=== PATIENT | female | born 1995 | race Caucasian/White ===

== ENCOUNTER → 2024-10-25 15:07 | Outpatient (REF) | payer BC, SELFPAY | LOC: RAD 15:07 | PROVIDERS: ATTENDING PHYSICIAN Obstetrics & Gynecology Gynecologic Oncology; FAMILY PHYSICIAN Family Medicine | DX: R87.619 Unspecified abnormal cytological findings in specimens from cervix uteri (principal); R87.810 Cervical high risk human papillomavirus (HPV) DNA test positive | CPT/HCPCS: 76830; 76856 ==

== ENCOUNTER 2024-11-08 06:31 | Day surgery (SDC) | payer BC, SELFPAY ==
--- NOTE | 2024-11-07 17:35 | W.CON.GYNONC ---
Chief Complaint
-
abnormal pap
History of Present Illness
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 She moved from [place] to [facility] one year ago to be closer
to her significant other. Her adventure education teacher history is significant for abnormal pap, and cervical dysplasia treated with LEEP in 2019. she does
not know grade. she has followed with with paps which were normal recently.
Pap smear dated June 29, 2024 shows atypical squamous cells of undetermined significance, high risk HPV is positive.
Colposcopy was done, ECC shows fragments of dysplastic squamous epithelium favor high�grade with mucous and benign
endocervical epithelium. Cervical biopsy at 12:00 also shows high�grade squamous dysplasia.
PMH: IBS, GERD, Anxiety
PSH: LEEP
SHx:: was a smoker, quit 5 yrs ago, drinks alcohol socially, denies drugs use but uses marijuana occasionally (medically)
�works at [employer]
FHX: Maternal GM Breast ca, Skin ca
Allergies No�Known�Allergies
Medications
Xanax�0.5�mg�tablet 10/03/2024 0 prn
Past�Medical�History Anxiety GERD IBS
Surgical�History
LEEP Biopsy�
Medical History
Allergies
Allergies reflect when allergies were last updated in [employer].
No Known Allergies Allergy (Verified 11/04/24 14:56)
Physical Exam
Physical Exam
Physical Exam
Pelvic Examination:
External normal labia, urethra, anus.
Vagina: Normal mucosa.
Cervix: normal appearance, no discharge. no gross lesion seen
Uterus: normal size.
Adnexa: No pelvic mass.
RVE: no masses or nodularity
General: Well developed, well nourished patient. In no acute distress.
Ears, Nose, Throat, and Mouth: Normal oral mucosa and oropharynx.
Neck: No thyromegaly. No cervical lymphadenopathy.
Lungs: Clear to auscultation. Good air movement bilaterally.
Cardiac: Regular rate. Regular rhythm. No murmurs appreciated.
Right Breast: No masses or dimpling. No nipple discharge.
Left Breast: No masses or dimpling. No nipple discharge.
Abdomen: Abdomen is soft. Non�tender to palpation. Non�distended.
Extremities: No edema.
Hematologic/Lymphatic: No palpable lymphadenopathy.
Musculoskeletal: Normal range of motion. Strength and Tone are normal.
Skin:Non�jaundiced. No petechia. No purpura.
Neurologic: Speech is fluent. Normal gait and station. Cranial nerves intact.
Results
-
CBC/Diff Ambiguous Default -FinalOrdered by: Trav DELAROSA
WBC 5.1 x10E3/uL 3.4-10.8 [facility]
RBC 4.66 x10E6/uL 3.77-5.28 [facility]
Hgb 13.7 g/dL 11.1-15.9 [facility]
HCT 41.6 % 34.0-46.6 [facility]
MCV 89 fL 79-97 [facility]
MCH 29.4 pg 26.6-33.0 [facility]
MCHC 32.9 g/dL 31.5-35.7 [facility]
RDW Ratio 11.7 % 11.7-15.4 [facility]
Plat 249 x10E3/uL 150-450 [facility]
Neut% 50 % Not Estab. [facility]
Lymph% 40 % Not Estab. [facility]
MONO% 8 % Not Estab. [facility]
EOS% 1 % Not Estab. [facility]
BASO% 1 % Not Estab. [facility]
ANC 2.6 x10E3/uL 1.4-7.0 [facility]
Lymph# 2.0 x10E3/uL 0.7-3.1 [facility]
MONO# 0.4 x10E3/uL 0.1-0.9 [facility]
EOS# 0.0 x10E3/uL 0.0-0.4 [facility]
BASO# 0.0 x10E3/uL 0.0-0.2 [facility]
Immature Granulocytes 0 % Not Estab. [facility]
Immature Grans (Abs) 0.0 x10E3/uL 0.0-0.1 [facility]
A hand-written panel/profile was received from your office. In
accordance with the [facility] Ambiguous Test Code Policy dated April
2002, we have assigned CBC with Differential/Platelet, Test Code
#546108 to this request. If this is not the testing you wished to
receive on this specimen, please contact the [facility] Client Inquiry/
Technical Services Department to clarify the test order. We
appreciate your business.
Comp. Metabolic Panel (14) -FinalOrdered by: Trav DELAROSA
Glucose 88 mg/dL 70-99 [facility]
BUN 13 mg/dL 6-20 [facility]
Creat 0.73 mg/dL 0.57-1.00 [facility]
eGFR 113 mL/min/1.73 >59 [facility]
BUN Creat Ratio 18 9-23 [facility]
Sodium 138 mmol/L 134-144 [facility]
Potassium 4.2 mmol/L 3.5-5.2 [facility]
Chloride 101 mmol/L 96-106 [facility]
CO2 22 mmol/L 20-29 [facility]
Calcium 9.6 mg/dL 8.7-10.2 [facility]
Total Protein 7.4 g/dL 6.0-8.5 [facility]
Albumin 4.6 g/dL 3.9-4.9 [facility]
Globulin 2.8 g/dL 1.5-4.5 [facility]
Total Bili 0.2 mg/dL 0.0-1.2 [facility]
Alk Phos 75 IU/L 44-121 [facility]
AST 21 IU/L 0-40 [facility]
ALT 16 IU/L 0-32 [facility]
Urinalysis, Complete -FinalOrdered by: Trav DELAROSA
Sp [place] 1.024 1.005-1.030 [facility]
ph 6.0 5.0-7.5 [facility]
Color Yellow Yellow [facility]
Appearance Clear Clear [facility]
WBC Esterase Negative Negative [facility]
Protein [Presence] Negative Negative/Trace [facility]
Glucose (urine) Negative Negative [facility]
Ketone Negative Negative [facility]
Blood Negative Negative [facility]
Bilirubin (UA) Negative Negative [facility]
Urobil 0.2Low mg/dL 0.2-1.0 [facility]
Nitrite Negative Negative [facility]
Microscopic Examination MICRON [facility]
Microscopic follows if indicated.
Microscopic Examination See below: [facility]
Microscopic was indicated and was performed.
Microscopic Examination -FinalOrdered by: Trav DELAROSA
WBC (Urine) HPF 0-5 /hpf 0 - 5 [facility]
RBC (Urine) HPF None seen /hpf 0 - 2 [facility]
Epithelial Cells (non renal) >10Abnormal /hpf 0 - 10 [facility]
Casts None seen /lpf None seen [facility]
Bacteria Few None seen/Few [facility]
hCG,Beta Subunit, Qnt -FinalOrdered by: Trav DELAROSA
hCG,Beta Subunit,Qnt,Serum <1 mIU/mL [facility]
Female (Non-) 0 - 5
(Postmenopausal) 0 - 8
.
Female ()
Weeks of Gestation
3 6 - 71
4 10 - 750
5 007 - 7036
6 254 - 66835
7 1514 -234989
8 85100 -342264
9 17990 -796143
10 42397 -293846
12 98180 -794207
14 69019 - 58490
15 13971 - 66137
16 7980 - 89634
17 0338 - 95960
18 2158 - 79759
Ericka ECLIA methodology
TSH reflex to T4F -FinalOrdered by: Trav DELAROSA
TSH 1.600 uIU/mL 0.450-4.500 [facility]
Urine Culture, Routine -FinalOrdered by: Trav Manzo Source:
Urine Culture, Routine Final report [facility]
Result -FinalOrdered by: Trav DELAROSA
Result 1 LESS [facility]
Culture shows less than 10,000 colony forming units of bacteria per
milliliter of urine. This colony count is not generally considered
to be clinically significant.
Ambig Abbrev CMP14 Default -FinalOrdered by: Trav DELAROSA
Ambig Abbrev CMP14 Default [facility]
CBC/Diff Ambiguous Default�-FinalOrdered by:�Trav DELAROSA
WBC 5.1 x10E3/uL 3.4-10.8 [facility]
RBC 4.66 x10E6/uL 3.77-5.28 [facility]
Hgb 13.7 g/dL 11.1-15.9 [facility]
HCT 41.6 % 34.0-46.6 [facility]
MCV 89 fL 79-97 [facility]
MCH 29.4 pg 26.6-33.0 [facility]
MCHC 32.9 g/dL 31.5-35.7 [facility]
RDW Ratio 11.7 % 11.7-15.4 [facility]
Plat 249 x10E3/uL 150-450 [facility]
Neut% 50 % Not Estab. [facility]
Lymph% 40 % Not Estab. [facility]
MONO% 8 % Not Estab. [facility]
EOS% 1 % Not Estab. [facility]
BASO% 1 % Not Estab. [facility]
ANC 2.6 x10E3/uL 1.4-7.0 [facility]
Lymph# 2.0 x10E3/uL 0.7-3.1 [facility]
MONO# 0.4 x10E3/uL 0.1-0.9 [facility]
EOS# 0.0 x10E3/uL 0.0-0.4 [facility]
BASO# 0.0 x10E3/uL 0.0-0.2 [facility]
Immature Granulocytes 0 % Not Estab. [facility]
Immature Grans (Abs) 0.0 x10E3/uL 0.0-0.1 [facility]
A�hand-written�panel/profile�was�received�from�your�office.�In
accordance�with�the�[facility]�Ambiguous�Test�Code�Policy�dated�Ame
ve�igned�CBC�with�Differential/Platelet,�Test�Code
#711679�to�this�request.�If�this�is�not�the�testing�you�wished�to
receive�on�this�specimen,�please�contact�the�[facility]�Client�Inquiry/
Technical�Services�Department�to�clarify�the�test�order.�We
appreciate�your�business.
Comp. Metabolic Panel (14)�-FinalOrdered by:�Trav DELAROSA
Glucose 88 mg/dL 70-99 [facility]
BUN 13 mg/dL 6-20 [facility]
Creat 0.73 mg/dL 0.57-1.00 [facility]
eGFR 113 mL/min/1.73 >59 [facility]
BUN Creat Ratio 18 9-23 [facility]
Sodium 138 mmol/L 134-144 [facility]
Potassium 4.2 mmol/L 3.5-5.2 [facility]
Chloride 101 mmol/L 96-106 [facility]
CO2 22 mmol/L 20-29 [facility]
Calcium 9.6 mg/dL 8.7-10.2 [facility]
Total Protein 7.4 g/dL 6.0-8.5 [facility]
Albumin 4.6 g/dL 3.9-4.9 [facility]
Globulin 2.8 g/dL 1.5-4.5 [facility]
Total Bili 0.2 mg/dL 0.0-1.2 [facility]
Alk Phos 75 IU/L 44-121 [facility]
AST 21 IU/L 0-40 [facility]
ALT 16 IU/L 0-32 [facility]
Urinalysis, Complete�-FinalOrdered by:�Trav DELAROSA
Sp [place] 1.024 1.005-1.030 [facility]
ph 6.0 5.0-7.5 [facility]
Color Yellow Yellow [facility]
Appearance Clear Clear [facility]
WBC Esterase Negative Negative [facility]
Protein [Presence] Negative Negative/Trace [facility]
Glucose (urine) Negative Negative [facility]
Ketone Negative Negative [facility]
Blood Negative Negative [facility]
Bilirubin (UA) Negative Negative [facility]
Urobil 0.2Low mg/dL 0.2-1.0 [facility]
Nitrite Negative Negative [facility]
Microscopic Examination MICRON [facility]
Microscopic�follows�if�indicated.
Microscopic Examination See below: [facility]
Microscopic�was�indicated�and�was�performed.
Microscopic Examination�-FinalOrdered by:�Trav DELAROSA
WBC (Urine) HPF 0-5 /hpf 0 - 5 [facility]
RBC (Urine) HPF None seen /hpf 0 - 2 [facility]
Epithelial Cells (non renal) >10Abnormal /hpf 0 - 10 [facility]
Casts None seen /lpf None seen [facility]
Bacteria Few None seen/Few [facility]
hCG,Beta Subunit, Qnt�-FinalOrdered by:�Trav DELAROSA
hCG,Beta Subunit,Qnt,Serum <1 mIU/mL [facility]
������������������������������������Female�(Non-)����0�-�����5
�������������������������������������������(Postmenopausal)��0�-�����8
���������������������������������������������������������������������.
������������������������������������Female�()
������������������������������������Weeks�of�Gestation
��������������������������������������������3����������������6�-����71
��������������������������������������������4���������������10�-���750
��������������������������������������������5��������������217�-��0038
��������������������������������������������6��������������761�-�83199
��������������������������������������������9�������������6517�-[id number]
��������������������������������������������5������������88165�-182886
��������������������������������������������4������������79439�-[id number]
�������������������������������������������17������������15353�-[id number]
�������������������������������������������05������������81539�-[id number]
�������������������������������������������23������������26314�-�41644
�������������������������������������������69������������14844�-�45547
�������������������������������������������47�������������7182�-�72820
�������������������������������������������55�������������1200�-�34957
�������������������������������������������68�������������0090�-�00366
Ericka�ECLIA�methodology
TSH reflex to T4F�-FinalOrdered by:�Trav DELAROSA
TSH 1.600 uIU/mL 0.450-4.500 [facility]
Urine Culture, Routine�-FinalOrdered by:�Trav BHARDWAJpechoward Source:�
Urine Culture, Routine Final report [facility]
Result�-FinalOrdered by:�Trav DELAROSA
Result 1 LESS [facility]
Culture�shows�less�than�10,000�colony�forming�units�of�bacteria�per
milliliter�of�urine.�This�colony�count�is�not�generally�considered
to�be�clinically�significant.
[facility] Default�-FinalOrdered by:�Trav DELAROSA
[facility] N[facility] Default [facility]
Impression / Plan
-
Impression
she has normal cervix, no gross lesion seen.
I was unable to do colposcopy today, we do not have colpo unit today at [place] office
I recommend a LEEP, Colpo for her in the OR. late Oct or Early Nov.
she is agreeable. Consent signed.
labs and US of pelvis ordered.
[2024-11-08] VITALS (7 sets, daily range): BP systolic 97–115; BP diastolic 59–81; BMI 23.2
[2024-11-08] MEDS: NEURONTIN 300 MG PO (11:35)
[2024-11-08] MEDS: CELEBREX 200 MG PO (11:35)
[2024-11-08] MEDS: TYLENOL 1000 MG PO (11:35)
[2024-11-08] MEDS: NORMOSOL-R/PLASMALYTE-A 1000 IV (11:36)
[2024-11-08] MEDS: HEPARIN 5000 UNITS SC (13:18)
--- NOTE | 2024-11-08 17:09 | OR.RPT ---
Operative Report
Operative Report
Preoperative diagnosis: High-grade squamous intraepithelial lesion of cervix
Postop diagnosis: Pending final pathology
Procedure: Colposcopy with LEEP conization, ECC
Surgeon: Pal Cox
Feller Machine Operator: Cindy Collier PA�C
Estimated blood loss 5 cc
Anesthesia General LMA intubation
Complication: None
Procedure in detail: This patient was brought to the operating room and placed in supine position, general anesthesia was administered with LMA intubation neck she was placed in lithotomy position using yellowfin stirrups and perineum and vagina and
upper thighs were prepped. Her arms were resting on armrests. Timeout procedure was completed she received 2 g of Ancef speculum was inserted in the vagina Lugol solution was applied to the cervix there is no gross lesion involving the cervix
there is lack of uptake along the endocervical canal between 4 and 6:00 extending to exocervix. Please note that this patient has had a prior LEEP procedure and the cervix is somewhat deformed. I injected combination of 1% lidocaine and Pitressin
as a paracervical block at 5 and 7:00 locations. I also injected the cervix in all quadrants with another 10 cc of the same mixture. A 15 mm loop was used with the 70 W cut and 30 W coag to remove ectocervix and transformation zone. A second 10
mm loop was used to remove Top-Hat. Sharp curettage of the endocervical canal was obtained and ECC was submitted to pathology I used a rollerball cautery to cauterize the bed of the conization. Next Monsel solution was applied to the cervical
conization bed. The vagina was cleansed. All instruments were removed. Patient was awakened extubated and returned back to recovery room stable awake and extubated condition. Counts of laps instruments and needle was correct x 2. I was present
and scrubbed for entire procedure as dictated above
Disposition: To PACU awake alert extubated
== END 2024-11-08 18:57 | disposition home or self-care (01) ==
LOC: SDS 06:31
PROVIDERS: ATTENDING PHYSICIAN Obstetrics & Gynecology Gynecologic Oncology
DX: N72 Inflammatory disease of cervix uteri (principal); R87.613 High grade squamous intraepithelial lesion on cytologic smear of cervix (HGSIL)
CPT/HCPCS: 57461; 88305; 88307